=== PATIENT | male | born 1940 | race Caucasian/White ===

== ENCOUNTER 2023-01-22 09:46 | Inpatient (IN) | payer OTHER ==
[2023-01-22] MEDS ORDERED: Ondansetron PF 4 MG/2 ML Vial ONE (10:19)
[2023-01-22 10:39] LABS: #Eosinphils 0.2 10x3/uL (0.0-0.5); #Monocytes 0.7 10x3/uL (0.0-1.1); #Neutrophils 6.3 10x3/uL (1.5-8.4); %Basophils 0.4 % (0.0-2.0); %Eosinophils 2.2 % (0.0-6.0); %Lymphocytes 27.2 % (18.0-47.0); %Monocytes 6.7 % (0.0-10.0); %Neutrophils 63.3 % (40.0-75.0); Hematocrit 24.5 % (38.8-50.0); Hemoglobin 7.7 g/dL (13.5-17.5); Mean Corpuscular HGB CONC 31.4 g/dL (32.0-36.0); Mean Corpuscular Hemoglobin 29.1 pg (27.0-33.0); Mean Corpuscular Volume 92.5 fl (81.2-95.1); Mean Platelet Volume 10.5 fl (7.4-10.4); Platelet Count 192 10x3/uL (150-450); RBC Distribution Width 18.5 % (11.5-14.5); Red Blood Cell (RBC) Count 2.65 10x6/uL (4.32-5.72); White Blood Cell (WBC) Count 9.9 10x3/uL (3.5-10.5)
[2023-01-22 10:47] LABS: ALT (SGPT) Less than 7 U/L (8-55); AST (SGOT) 11 U/L (5-34); Albumin 3.8 g/dL (3.4-4.8); Alkaline Phosphatase 49 U/L (40-110); Anion Gap 16 mmol/L (10-20); BUN (Urea Nitrogen) 60 mg/dL (8.4-25.7); Bilirubin, Total 0.7 mg/dL (0.2-1.2); Calc. Creatinine Clearance 0 mL/min (70-130); Calcium 8.5 mg/dL (7.8-10.44); Carbon Dioxide 17 mmol/L (23-31); Chloride 112 mmol/L (98-107); Estimated GFR 8; Globulin 1.7 g/dL (2.4-3.5); Glucose 112 mg/dL (83-110); Potassium 4.3 mmol/L (3.5-5.1); Protein, Total 5.5 g/dL (5.8-8.1); Sodium 141 mmol/L (136-145)
[2023-01-22 10:48] LABS: Troponin I 0.043 ng/mL (< 0.028)
[2023-01-22 10:54] LABS: Prothrombin Time 10.6 sec (9.5-12.1)
[2023-01-22 13:16] LABS: SARS-CoV-2 NAA Rapid Test Not Detected (NotDetected)
[2023-01-22] MEDS ORDERED: cefTRIAXone (ROCEPHIN) 1 GM VIAL ONE (13:23)
[2023-01-22] MEDS ORDERED: Ondansetron ODT 4 MG TAB PO PRN (13:58)
[2023-01-22] MEDS ORDERED: Acetaminophen 325 MG TAB PO PRN (13:58)
[2023-01-22] MEDS ORDERED: Azithromycin 500 MG VIAL ONE (15:19)
[2023-01-22 16:32] LABS: Troponin I 0.054 ng/mL (< 0.028)
[2023-01-22 18:45] VITALS: BMI 29.7
[2023-01-22 20:47] LABS: Bilirubin Neg (Negative); Blood, Urine Negative (Negative); Clarity Clear (Clear); Glucose, Urine (Dipstick) 50 mg/dL (Negative); Ketone, Urine Negative (Negative); Leukocyte Negative (Negative); Nitrite Negative (Negative); Protein, Urine (Dipstick) 30 mg/dl (Neg-Trace); Urobilinogen Normal mg/dL (Less than 2); pH, Urine 6.5 (5.0-9.0)
[2023-01-22 20:58] LABS: Bacteria/HPF 1+ HPF (None Seen); CAUTI Indications for Culture Dysuria,urgency,freq; RBC/HPF 0-3 HPF (0-3); Squamous Epithelial 0-3 HPF (0-3); WBC/HPF 0-3 HPF (0-3)
[2023-01-22] MEDS ORDERED: Atenolol 25 MG TAB PO SCH (21:00)
[2023-01-22] MEDS ORDERED: Atorvastatin Calcium 40 MG TAB PO SCH (21:00)
[2023-01-22 21:01] LABS: Urine Culture Reflex No No
[2023-01-22 21:24] LABS: Troponin I 0.046 ng/mL (< 0.028)
[2023-01-22 22:11] LABS: Potassium, Urine 16.5 mmol/L
[2023-01-23] MEDS ORDERED: Furosemide 100 MG/10 ML VIAL SLOW IVP SCH (08:00)
[2023-01-23] MEDS ORDERED: HYDROmorphone 0.5 MG/0.5 ML SYRINGE SLOW IVP SCH (08:00)
[2023-01-23 08:16] LABS: #Basophils 0.1 10x3/uL (0.0-0.2); #Eosinphils 0.1 10x3/uL (0.0-0.5); #Monocytes 0.6 10x3/uL (0.0-1.1); #Neutrophils 8.2 10x3/uL (1.5-8.4); %Basophils 0.4 % (0.0-2.0); %Eosinophils 1.2 % (0.0-6.0); %Lymphocytes 20.2 % (18.0-47.0); %Monocytes 5.1 % (0.0-10.0); %Neutrophils 72.7 % (40.0-75.0); Hematocrit 26.4 % (38.8-50.0); Hemoglobin 8.1 g/dL (13.5-17.5); Mean Corpuscular HGB CONC 30.7 g/dL (32.0-36.0); Mean Corpuscular Hemoglobin 28.6 pg (27.0-33.0); Mean Corpuscular Volume 93.3 fl (81.2-95.1); Mean Platelet Volume 10.5 fl (7.4-10.4); Platelet Count 200 10x3/uL (150-450); RBC Distribution Width 18.6 % (11.5-14.5); Red Blood Cell (RBC) Count 2.83 10x6/uL (4.32-5.72); White Blood Cell (WBC) Count 11.3 10x3/uL (3.5-10.5)
[2023-01-23] MEDS: Dronedarone HCl 400 MG TAB PO SCH ×2 (08:26→23:06)
[2023-01-23 08:35] LABS: Anion Gap 16 mmol/L (10-20); BUN (Urea Nitrogen) 57 mg/dL (8.4-25.7); Calc. Creatinine Clearance 13 mL/min (70-130); Calcium 8.9 mg/dL (7.8-10.44); Carbon Dioxide 18 mmol/L (23-31); Chloride 114 mmol/L (98-107); Estimated GFR 9; Glucose 124 mg/dL (83-110); Phosphorus 5.4 mg/dL (2.3-4.7); Potassium 5.1 mmol/L (3.5-5.1); Sodium 143 mmol/L (136-145)
[2023-01-23] MEDS ORDERED: EPOETIN ALFA-EPBX (ESRD) 10,000 UNITS/ML VIAL SC SCH (09:00)
[2023-01-23] MEDS ORDERED: Atenolol 25 MG TAB PO SCH ×2 (09:00→21:00)
[2023-01-23] MEDS ORDERED: Amlodipine 5 MG TAB PO SCH ×3 (09:00→13:00)
[2023-01-23] MEDS ORDERED: Sucralfate 1 GM TAB PO SCH (09:00)
[2023-01-23] MEDS ORDERED: Epoetin (ESRD) 10,000 UNITS/ML VIAL SC SCH (09:00)
[2023-01-23] MEDS ORDERED: LOKELMA 10 GM PACKET PO SCH (11:00)
[2023-01-23] MEDS: Sodium Bicarbonate Tab 325 MG TAB PO SCH ×3 (14:02→23:05)
[2023-01-23] MEDS: cefTRIAXone\\ROCEPHIN 1 GM in Sodium Chloride 0.9% 100 ML IVPB SCH (14:03)
[2023-01-23] MEDS ORDERED: Promethazine HCl 12.5 MG in Sodium Chloride 0.9% 50 ML IVPB PRN (15:01)
[2023-01-23 15:45] LABS: Lactic Acid 0.8 mmol/L (0.5-2.2)
[2023-01-23 15:49] LABS: Anion Gap 16 mmol/L (10-20); BUN (Urea Nitrogen) 58 mg/dL (8.4-25.7); Calc. Creatinine Clearance 13 mL/min (70-130); Calcium 8.8 mg/dL (7.8-10.44); Carbon Dioxide 18 mmol/L (23-31); Chloride 113 mmol/L (98-107); Estimated GFR 9; Glucose 114 mg/dL (83-110); Lipase 50 U/L (8-78); Potassium 5.3 mmol/L (3.5-5.1); Sodium 142 mmol/L (136-145)
[2023-01-23 16:43] LABS: Anion Gap 16 mmol/L (10-20); BUN (Urea Nitrogen) 58 mg/dL (8.4-25.7); Calc. Creatinine Clearance 13 mL/min (70-130); Calcium 8.7 mg/dL (7.8-10.44); Carbon Dioxide 18 mmol/L (23-31); Chloride 114 mmol/L (98-107); Estimated GFR 9; Glucose 123 mg/dL (83-110); Potassium 4.6 mmol/L (3.5-5.1); Sodium 143 mmol/L (136-145)
[2023-01-23] MEDS: Azithromycin 500 MG in Sodium Chloride 0.9% 250 ML 250 ML IVPB SCH (17:20)
[2023-01-23] MEDS ORDERED: Atorvastatin Calcium 40 MG TAB PO SCH (21:00)
[2023-01-23] MEDS: Atorvastatin Calcium 40 MG TAB PO SCH (23:06)
[2023-01-24 05:02] LABS: Anion Gap 15 mmol/L (10-20); BUN (Urea Nitrogen) 55 mg/dL (8.4-25.7); Calc. Creatinine Clearance 13 mL/min (70-130); Calcium 8.6 mg/dL (7.8-10.44); Carbon Dioxide 19 mmol/L (23-31); Chloride 115 mmol/L (98-107); Estimated GFR 9; Glucose 101 mg/dL (83-110); Sodium 144 mmol/L (136-145)
[2023-01-24] MEDS: Dronedarone HCl 400 MG TAB PO SCH ×2 (08:28→20:59)
[2023-01-24] MEDS: Sodium Bicarbonate Tab 325 MG TAB PO SCH ×3 (08:29→20:59)
[2023-01-24] MEDS ORDERED: Amlodipine 5 MG TAB PO SCH (09:00)
[2023-01-24] MEDS: cefTRIAXone\\ROCEPHIN 1 GM in Sodium Chloride 0.9% 100 ML IVPB SCH (13:24)
[2023-01-24] MEDS: Azithromycin 500 MG in Sodium Chloride 0.9% 250 ML 250 ML IVPB SCH (14:28)
[2023-01-24] MEDS: Carvedilol 6.25 MG TAB PO SCH (16:42)
[2023-01-24] MEDS: Atorvastatin Calcium 40 MG TAB PO SCH (20:59)
[2023-01-25 06:16] LABS: #Basophils 0.1 10x3/uL (0.0-0.2); #Eosinphils 0.4 10x3/uL (0.0-0.5); #Monocytes 1.1 10x3/uL (0.0-1.1); #Neutrophils 7.6 10x3/uL (1.5-8.4); %Basophils 0.5 % (0.0-2.0); %Eosinophils 2.9 % (0.0-6.0); %Lymphocytes 23.5 % (18.0-47.0); %Monocytes 8.9 % (0.0-10.0); %Neutrophils 63.7 % (40.0-75.0); Hematocrit 27.9 % (38.8-50.0); Hemoglobin 8.6 g/dL (13.5-17.5); Mean Corpuscular HGB CONC 30.8 g/dL (32.0-36.0); Mean Corpuscular Volume 97.2 fl (81.2-95.1); Mean Platelet Volume 10.6 fl (7.4-10.4); Platelet Count 186 10x3/uL (150-450); RBC Distribution Width 18.2 % (11.5-14.5); Red Blood Cell (RBC) Count 2.87 10x6/uL (4.32-5.72)
[2023-01-25 07:21] LABS: ALT (SGPT) Less than 7 U/L (8-55); AST (SGOT) 11 U/L (5-34); Albumin 3.6 g/dL (3.4-4.8); Alkaline Phosphatase 53 U/L (40-110); Bilirubin, Direct 0.4 mg/dL (0.1-0.3); Bilirubin, Total 0.8 mg/dL (0.2-1.2); Protein, Total 5.6 g/dL (5.8-8.1)
[2023-01-25] MEDS: Dronedarone HCl 400 MG TAB PO SCH ×2 (09:05→21:35)
[2023-01-25] MEDS: Carvedilol 6.25 MG TAB PO SCH (09:05)
[2023-01-25] MEDS: Sodium Bicarbonate Tab 325 MG TAB PO SCH ×3 (09:05→21:35)
[2023-01-25] MEDS ORDERED: hydrALAZINE 20 MG/ML VIAL SLOW IVP PRN (11:28)
[2023-01-25] MEDS ORDERED: Amlodipine 5 MG TAB PO SCH (12:00)
[2023-01-25 13:05] LABS: Anion Gap 16 mmol/L (10-20); BUN (Urea Nitrogen) 51 mg/dL (8.4-25.7); Calc. Creatinine Clearance 15 mL/min (70-130); Calcium 8.7 mg/dL (7.8-10.44); Carbon Dioxide 17 mmol/L (23-31); Chloride 112 mmol/L (98-107); Estimated GFR 11; Glucose 143 mg/dL (83-110); Magnesium 1.7 mg/dL (1.6-2.6); Potassium 4.4 mmol/L (3.5-5.1); Sodium 141 mmol/L (136-145)
[2023-01-25] MEDS: cefTRIAXone\\ROCEPHIN 1 GM in Sodium Chloride 0.9% 100 ML IVPB SCH (15:00)
[2023-01-25] MEDS: Azithromycin 500 MG in Sodium Chloride 0.9% 250 ML 250 ML IVPB SCH (15:03)
[2023-01-25] MEDS: Carvedilol 12.5 MG TAB PO SCH (17:00)
[2023-01-25] MEDS ORDERED: EPOETIN ALFA-EPBX (ESRD) 10,000 UNITS/ML VIAL SC SCH (17:00)
[2023-01-25] MEDS: Atorvastatin Calcium 40 MG TAB PO SCH (21:35)
[2023-01-26 04:56] LABS: #Basophils 0.1 10x3/uL (0.0-0.2); #Eosinphils 0.3 10x3/uL (0.0-0.5); #Monocytes 0.9 10x3/uL (0.0-1.1); #Neutrophils 5.7 10x3/uL (1.5-8.4); %Basophils 0.5 % (0.0-2.0); %Eosinophils 3.1 % (0.0-6.0); %Lymphocytes 28.7 % (18.0-47.0); %Monocytes 8.8 % (0.0-10.0); %Neutrophils 58.6 % (40.0-75.0); Hematocrit 25.6 % (38.8-50.0); Hemoglobin 8.2 g/dL (13.5-17.5); Mean Corpuscular Hemoglobin 29.6 pg (27.0-33.0); Mean Corpuscular Volume 92.4 fl (81.2-95.1); Mean Platelet Volume 10.7 fl (7.4-10.4); Platelet Count 168 10x3/uL (150-450); RBC Distribution Width 17.6 % (11.5-14.5); Red Blood Cell (RBC) Count 2.77 10x6/uL (4.32-5.72); White Blood Cell (WBC) Count 9.7 10x3/uL (3.5-10.5)
[2023-01-26 05:11] LABS: Anion Gap 14 mmol/L (10-20); BUN (Urea Nitrogen) 48 mg/dL (8.4-25.7); Calc. Creatinine Clearance 17 mL/min (70-130); Calcium 8.4 mg/dL (7.8-10.44); Carbon Dioxide 18 mmol/L (23-31); Chloride 111 mmol/L (98-107); Estimated GFR 12; Glucose 109 mg/dL (83-110); Sodium 139 mmol/L (136-145)
[2023-01-26 06:53] LABS: Magnesium 1.7 mg/dL (1.6-2.6)
[2023-01-26] MEDS: Magnesium Oxide 400 MG TAB PO SCH (09:54)
[2023-01-26] MEDS: Amlodipine 5 MG TAB PO SCH (09:54)
[2023-01-26] MEDS: Carvedilol 12.5 MG TAB PO SCH (09:54)
[2023-01-26] MEDS: Sodium Bicarbonate Tab 325 MG TAB PO SCH ×3 (09:54→21:14)
[2023-01-26] MEDS: Dronedarone HCl 400 MG TAB PO SCH ×2 (09:55→21:14)
[2023-01-26] MEDS ORDERED: Polyethylene Glycol 3350 17 GM Packet PO SCH (10:30)
[2023-01-26] MEDS: Magnesium 2 GM/50 ML(in water) 2 GM in Premix Bag 1 BAG IVPB SCH ×2 (11:35→13:10)
[2023-01-26] MEDS: cefTRIAXone\\ROCEPHIN 1 GM in Sodium Chloride 0.9% 100 ML IVPB SCH (16:08)
[2023-01-26] MEDS: Azithromycin 500 MG in Sodium Chloride 0.9% 250 ML 250 ML IVPB SCH (16:12)
[2023-01-26] MEDS: Carvedilol 25 MG TAB PO SCH (16:14)
[2023-01-26] MEDS: Senokot S 8.6-50 MG TAB PO SCH (21:14)
[2023-01-26] MEDS: Atorvastatin Calcium 40 MG TAB PO SCH (21:14)
[2023-01-27 05:01] LABS: #Eosinphils 0.4 10x3/uL (0.0-0.5); #Neutrophils 6.2 10x3/uL (1.5-8.4); %Basophils 0.4 % (0.0-2.0); %Eosinophils 3.6 % (0.0-6.0); %Lymphocytes 27.7 % (18.0-47.0); %Monocytes 9.1 % (0.0-10.0); %Neutrophils 58.8 % (40.0-75.0); Hematocrit 26.7 % (38.8-50.0); Hemoglobin 8.4 g/dL (13.5-17.5); Mean Corpuscular HGB CONC 31.5 g/dL (32.0-36.0); Mean Corpuscular Hemoglobin 29.6 pg (27.0-33.0); Mean Platelet Volume 10.7 fl (7.4-10.4); Platelet Count 179 10x3/uL (150-450); RBC Distribution Width 17.9 % (11.5-14.5); Red Blood Cell (RBC) Count 2.84 10x6/uL (4.32-5.72); White Blood Cell (WBC) Count 10.5 10x3/uL (3.5-10.5)
[2023-01-27 05:08] LABS: Anion Gap 14 mmol/L (10-20); BUN (Urea Nitrogen) 45 mg/dL (8.4-25.7); Calc. Creatinine Clearance 18 mL/min (70-130); Calcium 8.4 mg/dL (7.8-10.44); Carbon Dioxide 20 mmol/L (23-31); Chloride 109 mmol/L (98-107); Estimated GFR 13; Glucose 105 mg/dL (83-110); Magnesium 2.5 mg/dL (1.6-2.6); Potassium 4.2 mmol/L (3.5-5.1); Sodium 139 mmol/L (136-145)
[2023-01-27] MEDS ORDERED: Polyethylene Glycol 3350 17 GM Packet PO SCH (09:00)
[2023-01-27] MEDS: Sodium Bicarbonate Tab 325 MG TAB PO SCH ×2 (09:09→14:58)
[2023-01-27] MEDS: Senokot S 8.6-50 MG TAB PO SCH (09:09)
[2023-01-27] MEDS: Carvedilol 25 MG TAB PO SCH ×2 (09:10→17:45)
[2023-01-27] MEDS: Amlodipine 5 MG TAB PO SCH (09:10)
[2023-01-27] MEDS: Magnesium Oxide 400 MG TAB PO SCH (09:10)
[2023-01-27] MEDS: Dronedarone HCl 400 MG TAB PO SCH (09:10)
[2023-01-27 14:57] VITALS: BP 112/56; TEMP 98
[2023-01-27] MEDS: cefTRIAXone\\ROCEPHIN 1 GM in Sodium Chloride 0.9% 100 ML IVPB SCH (14:58)
[2023-01-27] MEDS: Azithromycin 500 MG in Sodium Chloride 0.9% 250 ML 250 ML IVPB SCH (17:03)
[2023-01-27] MEDS ORDERED: Tamsulosin HCl 0.4 MG CAP PO SCH (21:00)
[2023-01-28] MEDS ORDERED: Dutasteride 0.5 MG CAP PO SCH (09:00)
== END 2023-01-27 18:00 | disposition short-term general hospital (02) | DRG 193 ==
LOC: CSHERS 09:46 → CSHERHOLD 13:46 → CSHTELE 17:55 → OBSVTOIN 01-23 14:52
PROVIDERS: ADMIT Internal Medicine; ATTEND Family Medicine
PROC: 30233N1 Transfusion of Nonautologous Red Blood Cells into Peripheral Vein, Percutaneous Approach (ICD-10-PCS; principal; 2023-01-23)
DX: J18.9 Pneumonia, unspecified organism (principal); I50.33 Acute on chronic diastolic (congestive) heart failure; J96.01 Acute respiratory failure with hypoxia; I13.2 Hypertensive heart and chronic kidney disease with heart failure and with stage 5 chronic kidney disease, or end stage renal disease; N18.5 Chronic kidney disease, stage 5; N17.9 Acute kidney failure, unspecified; E87.20 Acidosis, unspecified; D62 Acute posthemorrhagic anemia; D63.1 Anemia in chronic kidney disease; I25.10 Atherosclerotic heart disease of native coronary artery without angina pectoris; E78.5 Hyperlipidemia, unspecified; I48.0 Paroxysmal atrial fibrillation; E87.5 Hyperkalemia; E83.42 Hypomagnesemia; Z95.1 Presence of aortocoronary bypass graft; Z90.49 Acquired absence of other specified parts of digestive tract; Z79.899 Other long term (current) drug therapy; Z98.890 Other specified postprocedural states; Z87.891 Personal history of nicotine dependence; Z79.01 Long term (current) use of anticoagulants; Z79.82 Long term (current) use of aspirin; Z20.822 Contact with and (suspected) exposure to COVID-19
CPT/HCPCS: 36415; 36430; 71045; 71250; 74018; 74177; 80048; 80053; 80076; 81001; 82436; 83605; 83690; 83735; 83880; 84100; 84105; 84133; 84300; 84484; 85025; 85610; 85730; 86850; 86900; 86901; 87040; 93005; 93010; 93306; 94760; 94762; 94799; 96361; 96365; 96375; 96376; G0378; J0456; J0696; J1940; J2405; J3475; J3490; J7050; P9016; Q0162; Q4081; Q5105